=== PATIENT | female | born 1960 | race Caucasian/White ===

== ENCOUNTER 2016-06-21 15:46 | Emergency (ER) | payer OTHER ==
[~2016-06-21] VITALS: Ht 157.5 cm; Wt 143.3 kg
[2016-06-21 15:50] VITALS: BP 137/70; PULSE 73; RESP 19; TEMP 97.3; O2SAT 96
--- NOTE | 2016-06-21 15:50 | NUR ---
Patient triaged and placed in waiting room. VSS and patient appears in no acute distress at this time. Accompanied by DAUGHTER, awaiting available bed, and MD notified of need for MSE.
--- NOTE | 2016-06-21 17:24 | NUR ---
Patient to ER bed H to gown for evaluation. Side rails up. Report given to Bridgett ARGUETA.
--- NOTE | 2016-06-21 17:30 | NUR ---
Patient to ER C/O nausea in the morning which "went away" and dizziness. AAOx4, unlabored breathing, no signs of acute distress. Denies pain, afebrile.
--- NOTE | 2016-06-21 18:09 | NUR ---
ER MIKE Hu at bedside evaluating the patient
[2016-06-21 18:54] LABS: BASOPHILS % (AUTO) 0.6 % (0.0-2.0); EOSINOPHILS # (AUTO) 0.1 K/uL (0.0-0.4); EOSINOPHILS % (AUTO) 2.2 % (0.0-4.0); HEMATOCRIT 37.1 % (36-48); HEMOGLOBIN 12.6 g/dL (12.0-16.0); LYMPHOCYTES # (AUTO) 1.8 K/uL (1.0-5.5); MEAN CORPUSCULAR HEMOGLOBIN 30 pg (27-31); MEAN CORPUSCULAR HGB CONC 34 % (32-36); MEAN CORPUSCULAR VOLUME 88 fL (79.0-98.0); MONOCYTES # (AUTO) 0.3 K/uL (0.0-1.0); MONOCYTES % (AUTO) 5.5 % (1.7-9.3); NEUTROPHILS # (AUTO) 3.1 K/uL (1.8-7.7); NEUTROPHILS % (AUTO) 57.7 % (40.0-70.0); PLATELET COUNT (AUTO) 149 K/uL (130-430); RED BLOOD CELL COUNT(AUTO) 4.23 MIL/uL (4.2-6.2); RED CELL DISTRIBUTION WIDTH 13.3 % (9.0-15.0); WHITE BLOOD COUNT (AUTO) 5.3 K/uL (4.8-10.8)
[2016-06-21 19:09] LABS: CALCIUM 8.8 mg/dL (8.4-11.0); CREATININE 0.85 mg/dL (0.55-1.30); POTASSIUM 4.2 mmol/L (3.5-5.1)
--- NOTE | 2016-06-21 19:18 | NUR ---
Patient on gurney, calm. No signs of acute distress. Friend at bedside
[2016-06-21 19:24] LABS: TOTAL BILIRUBIN 0.9 mg/dL (0.0-1.0)
[2016-06-21 19:25] LABS: ALBUMIN 3.6 g/dL (3.4-4.8); TOTAL PROTEIN, SERUM 7.9 g/dL (6.4-8.3)
[2016-06-21 19:45] LABS: BILIRUBIN,URINE NEGATIVE (NEGATIVE); BLOOD, URINE NEGATIVE (NEGATIVE); CLARITY/URINE CLOUDY (CLEAR); COLOR,URINE YELLOW (YELLOW); GLUCOSE,URINE NEGATIVE (NEGATIVE); KETONES,URINE NEGATIVE (NEGATIVE); LEUKOCYTE ESTERASE ,URINE NEGATIVE (NEGATIVE); NITRITE, URINE POSITIVE (NEGATIVE); PH,URINE 6.5 (5.0-8.0); PROTEIN URINE 1+ (NEGATIVE); UROBILINOGEN,URINE 0.2 (0.2-1.0)
[2016-06-21 20:20] LABS: RBC,URINE 0-3 /HPF (0-3)
[2016-06-21 20:21] LABS: BACTERIA,URINE MODERATE /HPF (None Seen); MUCUS,URINE None Seen /LPF (None Seen); URINE AMORPHOUS URATE 4+ /HPF (None Seen)
[2016-06-21] MEDS ORDERED: MECLIZINE HCL 25 MG TABLET (ANITVERT) PO ONE (20:30)
[2016-06-21 20:52] VITALS: BP 120/70; PULSE 67; RESP 18; TEMP 97.9; O2SAT 7
--- NOTE | 2016-06-21 20:52 | NUR ---
Patient given written and verbal discharge instructions and verbalizes understanding. ER [employer]ACH[employer] TENDER Mayte discussed with patient the results and treatment provided. Patient in stable condition. ID arm band removed. Rx of meclizine given. Patient educated on pain management and to follow up with PMD. Pain Scale 0/10. Opportunity for questions provided and answered.
== END 2016-06-21 20:52 | disposition home or self-care (01) ==
LOC: SED 15:46
DX: R42 Dizziness and giddiness (principal); R11.0 Nausea; I10 Essential (primary) hypertension; E11.9 Type 2 diabetes mellitus without complications; E66.01 Morbid (severe) obesity due to excess calories; Z68.43 Body mass index [BMI] 50.0-59.9, adult; Z88.1 Allergy status to other antibiotic agents
CPT/HCPCS: 36415; 70450; 80053; 81000; 85025; 87086; 93005; 99285; J8597